=== PATIENT | female | born 1960 | race Caucasian/White ===

== ENCOUNTER → 2023-04-10 | Outpatient (CLI) | payer OTHER | END | disposition home or self-care (01) | LOC: RESCLI 08:17 | PROVIDERS: ATTEND Student in an Organized Health Care Education/Training Program | DX: N32.81 Overactive bladder (principal); I10 Essential (primary) hypertension; K21.9 Gastro-esophageal reflux disease without esophagitis; E78.5 Hyperlipidemia, unspecified; Z79.82 Long term (current) use of aspirin; Z79.899 Other long term (current) drug therapy; Z82.49 Family history of ischemic heart disease and other diseases of the circulatory system; Z88.8 Allergy status to other drugs, medicaments and biological substances ==

== ENCOUNTER 2023-08-08 15:53 | Emergency (ER) | payer MEDICARE ==
[~2023-08-08] VITALS: Ht 177.8 cm; Wt 74.8 kg
[2023-08-08 16:22] LABS: BASO # 0.1 10*3/uL (0.0-0.1); EOS # 0.2 10*3/uL (0.0-0.4); EOS % 2.2 % (1.0-4.0); HEMATOCRIT 40.7 % (37.0-47.0); LYMPH # 2.5 10*3/uL (1.3-4.4); MEAN CELL VOLUME 89.1 fl (81.0-99.0); MEAN CORPUSCULAR HGB CONC 33.7 g/dl (33.0-37.0); MEAN PLATELET VOLUME 10.2 fl (9.6-12.3); MONO # 0.6 10*3/uL (0.1-1.0); MONO % 7.8 % (3.0-9.0); NEUT % 54.7 % (47.0-73.0); PLATELET COUNT AUTOMATED 167 10*3/uL (130-400); RED BLOOD COUNT 4.57 10*6/uL (4.10-5.10); WHITE BLOOD COUNT 7.3 10*3/uL (4.8-10.8)
[2023-08-08] MEDS ORDERED: BISOPROLOL FUMAR5 MG PO (16:28)
[2023-08-08] MEDS ORDERED: PRAVASTATIN SOD40 MG PO (16:29)
[2023-08-08] MEDS ORDERED: OMEPRAZOLE MAGN20 MG PO (16:29)
[2023-08-08] MEDS ORDERED: VAZALORE81 MG PO (16:30)
[2023-08-08] MEDS ORDERED: Ondansetron Hydrochloride 4 MG/2 ML VIAL IV ONE (16:35)
[2023-08-08 16:36] LABS: ACT PARTIAL THROMBO TIME 26.5 SECONDS (20.0-32.1)
[2023-08-08 16:38] LABS: POTASSIUM 3.5 mmol/L (3.4-5.1); TOTAL PROTEIN 6.6 gm/dL (6.0-8.0)
[2023-08-08] MEDS ORDERED: Meclizine Hydrochloride 25 MG TAB PO ONE (17:15)
[2023-08-08] MEDS ORDERED: IOHEXOL 350 MG/ML 100 ML VIAL IV ONE (18:25)
[2023-08-08] MEDS ORDERED: SODIUM CHLORIDE 0.9% 100 ML BAG IV ONE (18:25)
[2023-08-08] MEDS ORDERED: ONDANSETRON HYDR4 M1 PO (18:50)
[2023-08-08] MEDS ORDERED: Meclizine25 MG PO (18:50)
== END 2023-08-08 19:06 | disposition home or self-care (01) ==
LOC: ED 15:53
PROVIDERS: Emergency Medicine
DX: R42 Dizziness and giddiness (principal); R11.0 Nausea; R55 Syncope and collapse; I10 Essential (primary) hypertension; E78.5 Hyperlipidemia, unspecified; Z88.5 Allergy status to narcotic agent; Z98.51 Tubal ligation status; Z90.710 Acquired absence of both cervix and uterus; Z98.890 Other specified postprocedural states